=== PATIENT | female | born 1945 | race Caucasian/White ===

== ENCOUNTER → 2016-10-06 | Day surgery (SDC) | payer MEDICARE ==
[~2016-10-06] VITALS: Ht 165.1 cm; Wt 83.4 kg
[~2016-10-06] MED LIST: *morphine SULFATE 8 MG/ML PERIprocedure ONLY ONE; CALC200S NASAL; DEXAMETHASONE SOD PHOS 4 MG/ML VIAL ONE; DO NOT ADM ANY ANTICOAGULANT DRUGS XX PRN; ENOX40P SQ; FAMOTIDINE 20 MG/2 ML VIAL ONE; FURO20TA PO; INSULIN HUMAN REGULAR 1,000 UNITS/10 ML VIAL SQ PRN; KETOROLAC TROMETHAMINE 30 MG/ML (IVP) VIAL IVP ONE; LACTATED RINGER'S 1000 ML IV SCH; LISI-515 PO; LORA10TA PO; METOPROLOL TARTRATE 25 MG TAB PO PRN; MIDAZOLAM HCL 2 MG/2 ML VIAL ONE; MORPHINE SULFATE 4 MG/ML INJ IV PUSH PRN; ONDANSETRON HCL 4 MG/2 ML VIAL ONE; OXYC1TAB63 PO; PANT40TA3 PO; PROPOFOL 200 MG/20 ML AMP IV ONE; SODIUM CHLOR 0.9% 250 ML INJ 250 ML ONE; SODIUM CHLORID 0.9% 500 ML IV SCH; SODIUM CHLORIDE 0.9% FLUSH 10 ML FLUSH IV FLUSH PRN; SODIUM CHLORIDE 0.9% FLUSH 10 ML FLUSH IV FLUSH SCH; TRAM50TA PO; VANCOMYCIN HCL 1000 MG VIAL ONE; ceFAZolin 2 GM PREMIX 50 ML ONE
[2016-10-06 08:34] VITALS: BP 143/71; PULSE 62; RESP 16; TEMP 97.8; O2SAT 96
[2016-10-06] MEDS: GENTAMICIN SULFATE 80 MG/2 ML VIAL ONE ×2 (11:17→11:21)
--- NOTE | 2016-10-06 12:04 | RADRPT ---
EXAM DATE/TIME: 10/06/2016 11:39 [facility] COMPARISON: HIP LEFT (AP&LAT 2/3VWS) WO AP PELVIS, April 22, 2016, 12:28. INDICATIONS : Hardware removal, left hip. MEDICAL HISTORY : None. SURGICAL HISTORY : ORIF left hip ENCOUNTER: Initial ACUITY: 1 day PAIN SCORE: Non-responsive. LOCATION: Left hip FINDINGS: Hardware has been removed. Alignment remains anatomic. CONCLUSION: Status post hardware removal. Alton Baires MD FACR on October 06, 2016 at 12:01 Board Certified Radiologist. This report was verified electronically.
--- NOTE | 2016-10-06 12:14 | PD.OP ---
cc: Russ Ann Jr., MD Operative Report Date of Surgery: Oct 06, 2016 Preoperative Diagnosis: Left hip painful hardware Postoperative Diagnosis: Same Procedure: Left hip removal of hardware Anesthesia: Gen. Surgeon: Russ Ann Assistant Professor Of History(s): Staff Resident Surgeon: None Operation and Findings: Patient was seen and evaluated preoperatively. The patient is status post percutaneous screw fixation for a nondisplaced left femoral neck fracture. After fracture has healed, she continued to complain of persistent left trochanter hip pain from the screws. The pain persisted despite conservative care. She now presents for removal of hardware. The risks and benefits of surgery were discussed in depth with the patient to include bleeding, infection , nonunion, malunion, need for hip replacement as well as medical competitions including blood clots, stroke, heart attack, and . Informed consent was obtained. Operative site was marked. Patient was brought to the operating room and placed on fracture table. IV sedation was administered by anesthesiologist. Timeout procedure was performed. Hip and leg were prepped with alcohol followed by Hibiclens and draped in the usual sterile fashion. IV antibiotics were given prior to incision. Procedure began by making an incision through the previous surgical scar. Subcutaneous tissue was dissected bluntly. Under fluoroscopy, guide pins were placed into the head of the screws for localization and easier removal. The screws were removed. Final fluoroscopy revealed complete removal of all 3 screws. Incision was closed with 3-0 Vicryl and nimisha. Sterile dressings were applied. Patient was awakened and transferred to recovery room. POSTP-OP PLAN OF ACTIVITY Antibiotics: none Antiocoagulation: SCD Weight bearing status: NWB Dressing: Change daily starting POD 7 Dispo: expected discharge home from PACU Rsus Ann Jr., MD Oct 06, 2016 12:14
[2016-10-06 13:54] VITALS: BP 184/71; PULSE 67; RESP 16; TEMP 97.9; O2SAT 97
== END | disposition home or self-care (01) ==
LOC: HSDC 07:09
PROVIDERS: ATTEND Orthopaedic Surgery
DX: T84.84XA Pain due to internal orthopedic prosthetic devices, implants and grafts, initial encounter (principal); S72.22XD Displaced subtrochanteric fracture of left femur, subsequent encounter for closed fracture with routine healing; I10 Essential (primary) hypertension
CPT/HCPCS: 01210; 20680; 73502; 76000; 86850; 86900; 86901; J0690; J1100; J1580; J1885; J2250; J2270; J2405; J3010; J3370; J7050; J7120

== ENCOUNTER 2017-05-25 06:15 | Inpatient (IN) | payer MEDICARE ==
[~2017-05-25] VITALS: Ht 165.1 cm; Wt 91.0 kg
[~2017-05-25 06:15] MED LIST changes: -*morphine SULFATE 8 MG/ML PERIprocedure ONLY ONE; -DEXAMETHASONE SOD PHOS 4 MG/ML VIAL ONE; -DO NOT ADM ANY ANTICOAGULANT DRUGS XX PRN; -ENOX40P SQ; -FAMOTIDINE 20 MG/2 ML VIAL ONE; -INSULIN HUMAN REGULAR 1,000 UNITS/10 ML VIAL SQ PRN; -KETOROLAC TROMETHAMINE 30 MG/ML (IVP) VIAL IVP ONE; -LACTATED RINGER'S 1000 ML IV SCH; +LORA-650 PO; -LORA10TA PO; -METOPROLOL TARTRATE 25 MG TAB PO PRN; -MIDAZOLAM HCL 2 MG/2 ML VIAL ONE; -MORPHINE SULFATE 4 MG/ML INJ IV PUSH PRN; -ONDANSETRON HCL 4 MG/2 ML VIAL ONE; -OXYC1TAB63 PO; -PANT40TA3 PO; -PROPOFOL 200 MG/20 ML AMP IV ONE; -SODIUM CHLOR 0.9% 250 ML INJ 250 ML ONE; -SODIUM CHLORID 0.9% 500 ML IV SCH; -SODIUM CHLORIDE 0.9% FLUSH 10 ML FLUSH IV FLUSH PRN; -SODIUM CHLORIDE 0.9% FLUSH 10 ML FLUSH IV FLUSH SCH; -TRAM50TA PO; -VANCOMYCIN HCL 1000 MG VIAL ONE; -ceFAZolin 2 GM PREMIX 50 ML ONE
[2017-05-25] MEDS ORDERED: POVIDONE IODINE 7.5% SCRUB 118 ML BOTTLE TOPICAL SCH (06:45)
[2017-05-25] MEDS ORDERED: VANCOMYCIN 1000 MG/NS 250 ML (for <70 kg) IV SCH ×2 (06:45)
[2017-05-25] MEDS ORDERED: LACTATED RINGER'S 1000 ML IV PRN (06:45)
[2017-05-25] MEDS ORDERED: SODIUM CHLORID 0.9% 500 ML IV PRN (06:45)
[2017-05-25] MEDS ORDERED: CHLORHEXIDINE GLUCONATE 2 % 1 PACK (2 CLOTHS) TOPICAL PRN (06:45)
[2017-05-25] MEDS ORDERED: POVIDONE IODINE 5% (ANTISEPSIS KIT) 4 APPLICATIONS EACH NARE PRN (06:45)
[2017-05-25] MEDS ORDERED: ceFAZolin 2 GM PREMIX 50 ML IV SCH (06:45)
[2017-05-25] MEDS ORDERED: METOPROLOL TARTRATE 25 MG TAB PO PRN (06:45)
[2017-05-25] MEDS ORDERED: EXPAREL PERI-ARTICULAR INJECTION (TOTAL VOL. 60 ML) P-ARTICULR SCH ×2 (11:00)
[2017-05-25] MEDS ORDERED: TRANEXAMIC ACID 1 GM PRIOR TO PROCEDURE IV SCH ×2 (11:00)
[2017-05-25] MEDS ORDERED: PERC5TAB12 PO (11:32)
[2017-05-25] MEDS ORDERED: XARE10TA PO (11:32)
--- NOTE | 2017-05-25 11:34 | HHI.FF ---
Face to Face Verification Diagnosis: (1) Arthritis of left hip Physical Therapy Gait training Hip: Total hip, Protocol: Left Left LE Weight Bearing: WB as tolerated Left LE Range of Motion: Active ROM Additional Instructions anterior hip precautions Nursing Additional Instructions do not change dressing I have seen patient Liane Pagan on 05/25/17. My clinical findings support the need for the requested home health care services because: Ltd mobility - disease progression Limited ability to care for self High risk of falls I certify that my clinical findings support that this patient is homebound because: Post-op weakness Unsteady gait/balance Russ Ann Jr., MD May 25, 2017 11:34
[2017-05-25] MEDS ORDERED: GENTAMICIN SULFATE 80 MG/2 ML VIAL ONE (11:38)
[2017-05-25] MEDS ORDERED: PHENYLEPHRINE HCL 10 MG/ML VIAL IV ONE (12:00)
[2017-05-25] MEDS ORDERED: PROPOFOL 200 MG/20 ML AMP IV ONE (12:00)
[2017-05-25] MEDS ORDERED: ONDANSETRON HCL 4 MG/2 ML VIAL IV PUSH ONE (12:00)
[2017-05-25] MEDS ORDERED: SODIUM CHLORIDE 0.9% 20 ML VIAL IV ONE (12:00)
[2017-05-25] MEDS ORDERED: ceFAZolin INJ 1,000 MG VIAL IV ONE (12:00)
[2017-05-25] MEDS ORDERED: METOPROLOL TARTRATE 5 MG/5 ML VIAL IV PUSH ONE (12:00)
[2017-05-25] MEDS ORDERED: NORMOSOL R INJ 1,000 ML IV ONE (12:00)
[2017-05-25] MEDS ORDERED: LACTATED RINGER'S 1000 ML INJ 1,000 ML IV ONE (12:00)
[2017-05-25] MEDS ORDERED: PHENYLEPH/NS 1000 MCG/10 ML SYR IV ONE (12:00)
[2017-05-25] MEDS ORDERED: ROCURONIUM INJ 50 MG/5 ML SYRINGE IV PUSH ONE (12:00)
[2017-05-25] MEDS ORDERED: ePHEDrine/NS 25 MG/5 ML SYR IV ONE (12:00)
[2017-05-25] MEDS ORDERED: DEXAMETHASONE SOD PHOS 4 MG/ML VIAL IV ONE (12:00)
[2017-05-25] MEDS ORDERED: LIDOCAINE HCL 1% PF 5 ML SYRINGE OTHER ONE (12:00)
[2017-05-25] MEDS ORDERED: MIDAZOLAM HCL 2 MG/2 ML VIAL IV ONE (12:00)
[2017-05-25] MEDS ORDERED: TRANEXAMIC ACID 1 GM POST-OP IV SCH ×2 (14:00)
[2017-05-25 15:15] LABS: HEMATOCRIT 34.3 % (35.0-46.0); REVIEW FLAG FINAL
[2017-05-25 16:20] VITALS: BP 123/60; PULSE 88; RESP 17; TEMP 96.7; O2SAT 95
[2017-05-25] MEDS ORDERED: ceFAZolin INJ 1,000 MG VIAL ONE (16:41)
--- NOTE | 2017-05-25 16:41 | RADRPT ---
EXAM DATE/TIME: 05/25/2017 15:19 [facility] COMPARISON: HIP LEFT (AP&LAT 2/3VWS) W AP PELVIS, April 21, 2016, 16:49. INDICATIONS : Left total hip replacement. MEDICAL HISTORY : None. SURGICAL HISTORY : Prior left hip pinning. ENCOUNTER: Initial ACUITY: 1 day PAIN SCORE: Non-responsive. LOCATION: Left hip. FINDINGS: The patient is status post a total hip arthroplasty with a bipolar prosthesis. Prosthesis is well-sea rey. Alignment is anatomic. A fracture is not appreciated. CONCLUSION: Anatomic alignment. Alton Baires MD FACR Alton Baires MD FACR on May 25, 2017 at 16:38 Board Certified Radiologist. This report was verified electronically.
--- NOTE | 2017-05-25 17:01 | PD.OP ---
cc: Russ Ann Jr., MD Operative Report Date of Surgery: May 25, 2017 Preoperative Diagnosis: Left hip posttraumatic arthritis Postoperative Diagnosis: Same Procedure: Left total hip arthroplasty through anterior approach Anesthesia: Gen. Surgeon: Russ Ann Processing Mgr(s): JUAN DAVID Worrell The surgical procedure was assisted by my Advanced Registered Nurse Practitioner. My POWERTRAIN CONTROL SYSTEMS ENGINEER presence was necessary throughout this case for the manipulation and positioning of the surgical extremity. My POWERTRAIN CONTROL SYSTEMS ENGINEER was assisting me throughout the duration of this procedure. The skill set of an Advance Registered Nurse Practitioner was medically necessary to complete this procedure. During the surgical case, the assembler surgical garment was working at the back table and the Advance Registered Nurse Practitioner was directly assisting me. Resident Surgeon: None Operation and Findings: DETAILS OF PROCEDURE: This patient has a long history of LEFT hip pain. Patient was found to have severe post traumatic osteoarthritis. She is s/p left hip perc screw fixation with subsequent removal of hardware. The patient had radiographic evidence of joint space narrowing with utyc-hp-srcm arthritis and osteophytes around the acetabulum as well as the femoral head. There was also some cystic changes. The patient failed conservative treatment with pain medications, anti-inflammatories , physical therapy, assistive devices including a cane, as well as therapeutic injection of the hip. The patient wished to proceed with surgery and informed consent was obtained. Operative site was marked. I discussed both posterior approach and anterior approach. The patient decided on anterior approach. Patient was brought to OR and placed on OR table. IV sedation and general anesthesia was administered by anesthesiologist. Patient positioned on a Cecilia table and was given IV antibiotics. Time-out procedure was performed. The LEFT hip and thigh were prepped with alcohol followed by Hibiclens. The thigh was draped in the usual sterile fashion. Clean Air Suite was used for this procedure. The procedure began with a 5-inch incision over the anterolateral thigh. Subcutaneous tissue was dissected with Bovie. The fascia over the tensa fasciae latae was incised. Care was taken to avoid injury to the lateral femoral cutaneous nerve. The tensor muscle was retracted laterally. Sartorius was retracted medially. Retractors were now placed. The reflected head of the rectus is now elevated. A capsulotomy was performed over the anterior head capsule. Sutures were placed to help retract the capsule. At this point the femoral head and neck were identified. There was significant shortening of the femoral head. With soft tissue protected, oscillating saw was used to make a cut through the femoral neck, the femoral head was now removed. At this point attention was turned to preparation of the acetabulum. The labrum was excised. The acetabulum was sequentially reamed up to size. A [place] tritanium 54mm cup was now placed. Fluoroscopy was used to aid in identification of appropriate version. Cup was fully impacted and found to have excellent fit. Two (2) screws were place into the acetabulum to provide further fixation. The liner was now impacted into the cup. At this point the hip was externally rotated. A hook was placed around the proximal femur. The capsule was released off the lateral and medial femur. The hip was now extended and adducted. Retractors were placed around the proximal femur to allow for exposure. A box osteotome was used to remove the lateral cortex of the femoral neck. A broach and curet were used to help lateralize the prosthesis. There was significant sclerotic bone around the proximal femur from her previous fracture making passage of canal finder and broaches difficult and pushing them into varus. A ball-tipped guidewire was passed and a 12 mm reamer was used to further open the canal distally. Canal finder was used to create a path down the canal. Next, the canal was sequentially broached up to size 8. This was found to be an excellent fit. Calcar planer was placed. A standard head was placed, hip was reduced. Trial head was now was placed and the hip was found to have excellent stability with good range of motion. The leg lengths were measured under fluoroscopy and found to be equal compared to preoperatively. Trial broach was removed. The stem was opened. Stem was fully impacted into the proximal femur in appropriate version. The femoral head was placed. The hip was again reduced. Fluoroscopy confirmed excellent alignment of prosthesis. The wound was thoroughly irrigated and capsule was closed with #1 Vicryl. The fascia over the tensor fasciae muscle was closed with #1 Vicryl, subcutaneous tissue was closed with 3-0 Vicryl and the skin was closed with 4-0 monocryl. The capsule layers were injected with a mixture of saline and bupivicaine. A silver dressing was applied. The patient was transferred to Recovery Room in stable condition. IMPLANTS USED Styker Accollade II stem # 8, 132 56 cluster tritanium shell, 36 liner screws 6.5 mm 25mm screws x 2 36 +0mm ceramic head POSTP-OP PLAN OF ACTIVITY Antibiotics: Ancef Antiocoagulation: Lovenox while hospitalized (xeralto for 30 days. rx in chart) Weight bearing status: WBAT PT/OT: encourage at least 3 times a day Dressing: Do not change Dispo: expected discharge 2 days with C. F2F on chart Russ Ann Jr., MD May 25, 2017 17:01
[2017-05-25] MEDS ORDERED: FUROSEMIDE 20 MG TAB PO PRN (17:15)
[2017-05-25] MEDS ORDERED: SENNOSIDES 8.6 MG TAB PO PRN (17:15)
[2017-05-25] MEDS ORDERED: oxyCODONE/ACETAMINOPHEN 5 MG/325 MG TAB PO PRN (17:15)
[2017-05-25] MEDS ORDERED: ONDANSETRON HCL 4 MG/2 ML VIAL IVP PRN (17:15)
[2017-05-25] MEDS ORDERED: PROMETHAZINE HCL 25 MG SUPP RECTAL PRN (17:15)
[2017-05-25] MEDS ORDERED: Post-op Orders (for Pharmacy) MISC XX ONE (17:15)
[2017-05-25] MEDS ORDERED: MAGNESIUM HYDROXIDE SUSP 30 ML CUP PO PRN (17:15)
[2017-05-25] MEDS ORDERED: ZOLPIDEM TARTRATE 5 MG TAB PO PRN (17:15)
[2017-05-25] MEDS ORDERED: LACTULOSE SYRUP 20 GM/30 ML CUP PO PRN (17:15)
[2017-05-25] MEDS ORDERED: MORPHINE SULFATE 8 MG/ML INJ IV PUSH PRN (17:15)
[2017-05-25] MEDS ORDERED: BISACODYL 10 MG SUPP RECTAL PRN (17:15)
[2017-05-25] MEDS ORDERED: PROMETHAZINE HCL 25 MG TAB PO PRN (17:15)
[2017-05-25] MEDS ORDERED: SODIUM CHLORIDE 0.9% FLUSH 10 ML FLUSH IV FLUSH PRN (17:15)
[2017-05-25] MEDS ORDERED: *morphine SULFATE 8 MG/ML PERIprocedure ONLY ONE ×3 (17:17→17:56)
[2017-05-25] MEDS ORDERED: DO NOT ADM ANY ANTICOAGULANT DRUGS PRN (17:45)
--- NOTE | 2017-05-25 17:52 | RADRPT ---
EXAM DATE/TIME: 05/25/2017 17:21 [facility] COMPARISON: HIP LEFT (AP&LAT 2/3VWS) W AP PELVIS, May 25, 2017, 15:19. INDICATIONS : Post operative left hip. MEDICAL HISTORY : None. SURGICAL HISTORY : Prior left hip pinning. ENCOUNTER: Subsequent ACUITY: 1 day PAIN SCORE: Non-responsive. LOCATION: Left hip. FINDINGS: The patient is post left hip arthroplasty. Orthopedic hardware is in excellent position. The alignmen t is good. No acute fracture is seen. CONCLUSION: Uncomplicated left hip arthroplasty. Kody Baires MD on May 25, 2017 at 17:50 Board Certified Radiologist. This report was verified electronically.
[2017-05-25] MEDS ORDERED: TRANEXAMIC ACID INJ 1,000 MG in SODIUM CHLORIDE 0.9% INJ 100 ML IV SCH (18:00)
[2017-05-25] MEDS ORDERED: PILL SPLITTER OTHER PRN (18:00)
[2017-05-25 20:00] VITALS: BP 110/60; PULSE 92; RESP 16; TEMP 94.3; O2SAT 99
[2017-05-25] MEDS: DOCUSATE SODIUM 50 MG/SENNA 8.6 MG TAB PO SCH (20:31)
[2017-05-25] MEDS: KETOROLAC TROMETHAMINE 30 MG/ML (IVP) VIAL IVP SCH ×2 (20:31→23:41)
[2017-05-25] MEDS: SODIUM CHLORIDE 0.9% FLUSH 10 ML FLUSH IV FLUSH SCH (20:31)
[2017-05-26] VITALS (8 sets, daily range): BP systolic 92–135; BP diastolic 39–58; PULSE 76–93; RESP 16–20; TEMP 94.1–99.7; O2SAT 94–100
[2017-05-26] MEDS: KETOROLAC TROMETHAMINE 30 MG/ML (IVP) VIAL IVP SCH ×3 (05:52→16:55)
[2017-05-26] MEDS: ENOXAPARIN SODIUM 30 MG/0.3 ML SYRINGE SQ SCH ×2 (05:56→16:56)
[2017-05-26] MEDS: DOCUSATE SODIUM 50 MG/SENNA 8.6 MG TAB PO SCH ×2 (08:13→20:49)
[2017-05-26] MEDS: SODIUM CHLORIDE 0.9% FLUSH 10 ML FLUSH IV FLUSH SCH ×2 (08:14→20:49)
[2017-05-26] MEDS: LORATADINE 10 MG TAB PO SCH (08:14)
[2017-05-26] MEDS ORDERED: LISINOPRIL 20 MG TAB PO SCH (09:00)
--- NOTE | 2017-05-26 10:33 | PD.CONS ---
HPI Service [facility] Hospitalists Consult Requested By Dr. Ann Reason for Consult Medical management status post left total hip arthroplasty anterior approach Primary Care Physician Alex Saeed MD Diagnoses: History of Present Illness This is a 72-year-old female patient with past medical history which includes hypertension, GERD, osteoporosis. Patient underwent a left total hip arthroplasty on 05/25/[address] Ann. We have been consulted for assistance with postoperative medical management. Postoperative pain tolerable. Patient reports N/V last night but none today. Patient also reports feeling dizzy and lightheaded earlier today when trying to stand. patient denies fevers chills cough congestion shortness of breath or chest pain. Review of Systems Constitutional: DENIES: Fatigue, Fever, Chills Eyes: DENIES: Blurred vision, Diplopia, Double Vision Respiratory: DENIES: Cough, Sputum production, Shortness of breath Cardiovascular: DENIES: Chest pain, Palpitations, Dyspnea on Exertion Gastrointestinal: DENIES: Abdominal pain, Constipation, Diarrhea, Nausea, Vomiting Musculoskeletal: COMPLAINS OF: Joint pain, Stiffness Neurologic: COMPLAINS OF: Abnormal gait, DENIES: Headache, Localized weakness, Seizures Psychiatric: DENIES: Anxiety, Confusion, Depression Past Family Social History Past Medical History Hypertension, GERD and osteoporosis Past Surgical History Bladder prolapse surgery [place] [address] Diana Reported Medications Xarelto (Rivaroxaban) 10 Mg Tab 10 Mg PO DAILY Percocet (Oxycodone-Acetaminophen) 5-325 mg Tab 1 Tab PO Q4H PRN Allergy Relief (Loratadine) 10 Mg Tab 10 Mg PO DAILY Calcitonin ([place]) Nasal [place] (Calcitonin [place]) 200 Unit/Act [place] 1 [place] NASAL DAILY Alternate nostrils daily. Furosemide 20 Mg Tab 10 Mg PO DAILY PRN Lisinopril 20 Mg Tab 20 Mg PO DAILY Allergies: Coded Allergies: NSAIDS (Non-Steroidal Anti-Inflamma (Verified Allergy, Severe, 05/25/17) gerd risedronate sodium (Verified Allergy, Intermediate, Joint Pain, 05/25/17) alendronate sodium (Verified Allergy, Unknown, 05/25/17) diclofenac (Verified Allergy, Unknown, 05/25/17) Active Ordered Medications Current Medications Medications (Trade) Dose Ordered Sig/Deshawn Route Start Time Stop Time Status Last Admin Lactated Ringer's 1,000 ml @ 30 mls/hr Q24H PRN IV 05/25/17 06:45 05/28/17 06:44 05/25/17 07:30 Sodium Chloride 500 ml @ 30 mls/hr [id number] PRN IV 05/25/17 06:45 05/28/17 06:44 (Lopressor) 25 mg LIVE AMMUNITION INSPECTOR PRN PO 05/25/17 06:45 05/28/17 06:44 (Betadine 5% Antisepsis Kit) 1 applic LIVE AMMUNITION INSPECTOR PRN EACH NARE 05/25/17 06:45 05/28/17 06:44 05/25/17 07:30 (Chlorhexidine 2% Cloth) 3 pack LIVE AMMUNITION INSPECTOR PRN TOPICAL 05/25/17 06:45 05/28/17 06:44 05/25/17 07:10 (Betadine 7.5% Scrub) 1 applic ONCE TOPICAL 05/25/17 06:45 05/28/17 06:44 05/25/17 07:43 Cefazolin Sodium/ Dextrose 50 ml @ 100 mls/hr LIVE AMMUNITION INSPECTOR IV 05/25/17 06:45 05/28/17 06:44 05/25/17 12:42 Vancomycin HCl 1000 mg/Sodium Chloride 250 ml @ 250 mls/hr LIVE AMMUNITION INSPECTOR IV 05/25/17 06:45 05/28/17 06:44 05/25/17 12:28 Tranexamic Acid 1000 mg/Sodium Chloride 110 ml @ 220 mls/hr ONCE IV 05/25/17 11:00 05/26/17 17:00 05/25/17 12:32 (NS Flush) 2 ml UNSCH PRN IV FLUSH 05/25/17 17:15 (NS Flush) 2 ml BID IV FLUSH 05/25/17 21:00 05/25/17 20:31 Cefazolin Sodium 1000 mg/Sodium Chloride 100 ml @ 200 mls/hr Q6H IV 05/25/17 23:00 05/26/17 11:29 05/26/17 10:01 (Lovenox Inj) 30 mg Q12H SQ 05/26/17 06:00 05/26/17 05:56 (Morphine Inj) 5 mg Q3H PRN IV PUSH 05/25/17 17:15 (Percocet 5-325 Mg) 1 tab Q4H PRN PO 05/25/17 17:15 (Percocet 5-325 Mg) 2 tab Q4H PRN PO 05/25/17 17:15 (Toradol Inj) 15 mg Q6HR IVP 05/25/17 20:00 05/27/17 12:01 05/26/17 05:52 (Phenergan) 25 mg Q4H PRN PO 05/25/17 17:15 (Phenergan Supp) 25 mg Q4H PRN RECTAL 05/25/17 17:15 (Theragran M Tab) 1 tab BID PO 05/26/17 21:00 07/25/17 20:59 (Zofran Inj) 4 mg Q6H PRN IVP 05/25/17 17:15 (Ambien) 5 mg HS PRN PO 05/25/17 17:15 (Maile-Colace) 1 tab BID PO 05/25/17 21:00 05/26/17 08:13 (Milk Of Magnesia Liq) 30 ml Q12H PRN PO 05/25/17 17:15 (Senokot) 17.2 mg Q12H PRN PO 05/25/17 17:15 (Dulcolax Supp) 10 mg DAILY PRN RECTAL 05/25/17 17:15 (Lactulose Liq) 30 ml DAILY PRN PO 05/25/17 17:15 (Lasix) 10 mg DAILY PRN PO 05/25/17 17:15 (Prinivil) 20 mg DAILY PO 05/26/17 09:00 (Claritin) 10 mg DAILY PO 05/26/17 09:00 Miscellaneous Information ALL NURSING DEPARTME... UNSCH PRN .XX 05/25/17 17:45 05/26/17 17:44 (Pill Splitter) 1 ea UNSCH PRN OTHER 05/25/17 18:00 Family History Reviewed and noncontributory Social History Patient is lives at home with her EtOH use occasionally not on a daily basis Tobacco use quit smoking 30 years ago Physical Exam Vital Signs Vital Signs Date Time Temp Pulse Resp B/P (MAP) Pulse Ox O2 Delivery O2 Flow Rate FiO2 05/26/17 08:00 95.9 76 18 92/46 (61) 99 05/26/17 04:00 98.2 81 16 108/49 (68) 98 05/26/17 01:19 96.9 05/26/17 00:00 94.1 87 17 104/58 (73) 99 05/25/17 20:00 94.3 92 16 110/60 (77) 99 05/25/17 18:00 84 16 112/56 (74) 97 Nasal Cannula 2 05/25/17 17:45 86 16 137/59 (85) 97 Nasal Cannula 2 05/25/17 17:30 84 16 124/56 (78) 96 Nasal Cannula 2 05/25/17 17:15 95 16 106/51 (69) 97 Nasal Cannula 2 05/25/17 17:08 97.7 100 16 118/56 (76) 96 Nasal Cannula 2 05/25/17 16:20 96.7 88 17 123/60 (81) 95 Physical Exam GENERAL: This is a well-nourished, well-developed patient, in no apparent distress. SKIN: Postoperative dressing dry and intact. Pale/dry oral mucosa EYES: Extraocular motions intact. No scleral icterus. No injection or drainage. CARDIOVASCULAR: Regular rate and rhythm RESPIRATORY: Clear to auscultation. Breath sounds equal bilaterally GASTROINTESTINAL: Abdomen soft, non-tender, nondistended. Normoactive bowel sounds 4 quadrants MUSCULOSKELETAL:No calf tenderness. Negative Homans sign bilaterally. NEUROLOGICAL: Awake and alert. No focal deficits appreciated. Motor and sensory grossly within normal limits. Five out of 5 muscle strength in all muscle groups, with the exception of post-operative LLE. Normal speech. Laboratory Laboratory Tests Test 05/25/17 14:26 Hemoglobin 11.2 Hematocrit 34.3 Result Diagram: 05/25/17 1426 Imaging Last Impressions Hip and Pelvis X-Ray 05/25/17 0000 Signed Impressions: Service Date/Time: Thursday, May 25, 2017 17:21 - CONCLUSION: Uncomplicated left hip arthroplasty. Kody Baires MD Assessment and Plan Problem List: (1) Arthritis of left hip ICD Codes: M16.12 - Unilateral primary osteoarthritis, left hip Plan: Left hip posttraumatic arthritis Status post left total hip arthroplasty through anterior approach by Dr. Ann 05/25/2017 Postoperative pain management with Percocet by mouth and morphine IV Hypertension currently hypotensive Continue home lisinopril withhold parameters 500 ml NS bolus stat CBC GERD Continue home Protonix DVT prophylaxis with Lovenox 30 mg every 12 hours subcutaneous (2) HTN (hypertension) ICD Codes: I10 - Essential (primary) hypertension Status: Chronic (3) GERD (gastroesophageal reflux disease) ICD Codes: K21.9 - Gastro-esophageal reflux disease without esophagitis Status: Chronic Assessment and Plan Patient examined. Assessment and plan formulated with Naida Elder PA-C. I agree with the above. s/p left baldo. post op hypotension. probably mild blood loss anemia and related to pain meds/anesthesia...plus poor po intake last night from n/v. hold bp meds. cont ivf. 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 bp slowly rising. reassess later. Naida Elder May 26, 2017 10:33 Zackary Alanis MD May 26, 2017 13:12
[2017-05-26] MEDS ORDERED: SODIUM CHLORID 0.9% 500 ML INJ 500 ML IV ONE (11:15)
--- NOTE | 2017-05-26 12:52 | PD.ORT.PN ---
Subjective Subjective Remarks pain controlled. feels weak and dizzy upon sitting up. hypotensive. Objective Vitals Vital Signs Date Time Temp Pulse Resp B/P (MAP) Pulse Ox O2 Delivery O2 Flow Rate FiO2 05/26/17 12:00 96.7 82 18 98/39 (58) 100 05/26/17 08:00 95.9 76 18 92/46 (61) 99 05/26/17 04:00 98.2 81 16 108/49 (68) 98 05/26/17 01:19 96.9 05/26/17 00:00 94.1 87 17 104/58 (73) 99 05/25/17 20:00 94.3 92 16 110/60 (77) 99 05/25/17 18:00 84 16 112/56 (74) 97 Nasal Cannula 2 05/25/17 17:45 86 16 137/59 (85) 97 Nasal Cannula 2 05/25/17 17:30 84 16 124/56 (78) 96 Nasal Cannula 2 05/25/17 17:15 95 16 106/51 (69) 97 Nasal Cannula 2 05/25/17 17:08 97.7 100 16 118/56 (76) 96 Nasal Cannula 2 05/25/17 16:20 96.7 88 17 123/60 (81) 95 I/O 05/25/17 05/25/17 05/25/17 05/26/17 05/26/17 05/26/17 07:00 15:00 23:00 07:00 15:00 23:00 Intake Total 2820 ml 100 ml 598 ml Output Total 1700 ml Balance 1120 ml 100 ml 598 ml Intake Oral 20 ml IV Total 100 ml 598 ml Other 2800 ml Output Urine Total 600 ml Estimated Blood Loss 1100 ml Result Diagram: 05/25/17 1426 Objective Remarks Alert awake and oriented -3. No acute distress. Pulmonary: Normal respiratory effort. Left lower extremity: Neurovascularly intact, +EHL/FHL, dressing clean, dry and intact. + PT/DP pulses. Supple compartments. Negative Homans sign. Right lower extremity: neurovascularly intact Assessment & Plan Assessment and Plan POD #1left total hip replacement Feeling weak and hypotensive. Otherwise no other issues. Pain controlled Antibiotics: Ancef DVT prophylaxis, Lovenox. xeralto (at dc, rx on chart) Weightbearing status: WBAT Dressing change:none Dispo: home with [facility] tomorrow or Russ Stark Jr., MD May 26, 2017 12:52
[2017-05-26 13:04] LABS: HEMATOCRIT 26.7 % (35.0-46.0); MEAN CELL VOLUME 96.6 FL (80.0-100.0); MEAN CORPUSCULAR HEMOGLOBIN 31.8 PG (27.0-34.0); MEAN CORPUSCULAR HGB CONC 32.9 % (32.0-36.0); PLATELET COUNT 170 TH/MM3 (150-450); RED BLOOD COUNT 2.77 MIL/MM3 (4.00-5.30); RED CELL DISTRIBUTION WIDTH 15.1 % (11.6-17.2); REVIEW FLAG FINAL; WHITE BLOOD COUNT 10.4 TH/MM3 (4.0-11.0)
[2017-05-26] MEDS: MULTIVITAMINS/MINERALS THERAPEUTIC TAB PO SCH (20:49)
[2017-05-27] VITALS (11 sets, daily range): BP systolic 102–133; BP diastolic 45–62; PULSE 81–105; RESP 16–20; TEMP 96.8–101.3; O2SAT 94–98
[2017-05-27] MEDS: oxyCODONE/ACETAMINOPHEN 5 MG/325 MG TAB PO PRN ×4 (00:03→22:22)
[2017-05-27] MEDS: KETOROLAC TROMETHAMINE 30 MG/ML (IVP) VIAL IVP SCH ×3 (00:04→13:46)
[2017-05-27] MEDS: ENOXAPARIN SODIUM 30 MG/0.3 ML SYRINGE SQ SCH ×2 (05:08→16:47)
[2017-05-27] MEDS: DOCUSATE SODIUM 50 MG/SENNA 8.6 MG TAB PO SCH ×2 (08:39→22:22)
[2017-05-27] MEDS: MULTIVITAMINS/MINERALS THERAPEUTIC TAB PO SCH ×2 (08:39→22:22)
[2017-05-27] MEDS: SODIUM CHLORIDE 0.9% FLUSH 10 ML FLUSH IV FLUSH SCH ×2 (08:40→22:22)
[2017-05-27] MEDS: LORATADINE 10 MG TAB PO SCH (08:40)
--- NOTE | 2017-05-27 08:54 | PD.ORT.PN ---
Subjective Subjective Remarks pain controlled. feels better Objective Vitals Vital Signs Date Time Temp Pulse Resp B/P (MAP) Pulse Ox O2 Delivery O2 Flow Rate FiO2 05/27/17 04:00 99.1 99 20 119/55 (76) 97 05/27/17 00:04 100.2 05/27/17 00:00 101.3 105 20 131/62 (85) 97 05/26/17 20:15 94 Nasal Cannula 1.00 05/26/17 20:00 99.7 93 20 115/57 (76) 99 05/26/17 16:00 97.8 85 18 135/52 (79) 94 05/26/17 12:00 96.7 82 18 98/39 (58) 100 I/O 05/26/17 05/26/17 05/26/17 05/27/17 05/27/17 05/27/17 07:00 15:00 23:00 07:00 15:00 23:00 Intake Total 100 ml 1318 ml 480 ml 1226 ml Output Total 1000 ml 1700 ml 400 ml 600 ml Balance 100 ml 318 ml -1220 ml 826 ml -600 ml Intake Oral 720 ml 480 ml 280 ml IV Total 100 ml 598 ml 946 ml Output Urine Total 1000 ml 1700 ml 400 ml 600 ml # Bowel Movements 0 0 Result Diagram: 05/26/17 1236 Objective Remarks Alert awake and oriented -3. No acute distress. Pulmonary: Normal respiratory effort. Left lower extremity: Neurovascularly intact, +EHL/FHL, dressing clean, dry and intact. + PT/DP pulses. Supple compartments. Negative Homans sign. Right lower extremity: neurovascularly intact Assessment & Plan Assessment and Plan POD #2- left total hip replacement Feeling better. She is looking forward to doing PT today. Pain controlled DVT prophylaxis, Lovenox. xeralto (at dc, rx on chart) Weightbearing status: WBAT Dressing change:none Dispo: home with [facility] Russ Stark Jr., MD May 27, 2017 08:54
[2017-05-27 09:49] LABS: BASOPHIL % 0.4 % (0.0-2.0); EOSINOPHIL # 0.1 TH/MM3 (0-0.4); HEMO FLAGS DIFF FINAL; LYMPH % 11.1 % (9.0-44.0); MEAN CELL VOLUME 94.2 FL (80.0-100.0); MEAN CORPUSCULAR HEMOGLOBIN 31.3 PG (27.0-34.0); MEAN CORPUSCULAR HGB CONC 33.2 % (32.0-36.0); MONO % 10.5 % (0.0-8.0); PLATELET COUNT 161 TH/MM3 (150-450); RED BLOOD COUNT 2.34 MIL/MM3 (4.00-5.30); RED CELL DISTRIBUTION WIDTH 14.6 % (11.6-17.2); WHITE BLOOD COUNT 9.1 TH/MM3 (4.0-11.0)
[2017-05-27 10:13] LABS: BICARBONATE 22.8 MEQ/L (21.0-32.0); POTASSIUM 3.8 MEQ/L (3.5-5.1)
--- NOTE | 2017-05-27 11:22 | HHI.PR ---
Subjective Remarks Pt had fever last night, Tmax 101.3 She reported some pain when up to the chair but otherwise pain is controlled She denies any chest pain, SOB, palpitations, dizziness or weakness No noted blood or melena from the rectum, no nausea/vomiting/hematemesis/coffee- ground emesis Her BP decreased down to systolic BP in the high 70's when she was placed in the chair this morning. Objective Vitals Vital Signs Date Time Temp Pulse Resp B/P (MAP) Pulse Ox O2 Delivery O2 Flow Rate FiO2 05/27/17 08:00 99.5 93 17 115/55 (75) 97 05/27/17 04:00 99.1 99 20 119/55 (76) 97 05/27/17 00:04 100.2 05/27/17 00:00 101.3 105 20 131/62 (85) 97 05/26/17 20:15 94 Nasal Cannula 1.00 05/26/17 20:00 99.7 93 20 115/57 (76) 99 05/26/17 16:00 97.8 85 18 135/52 (79) 94 05/26/17 12:00 96.7 82 18 98/39 (58) 100 05/27/17 05/27/17 05/28/17 15:00 23:00 07:00 Output Total 600 ml Balance -600 ml Output Urine Total 600 ml Result Diagram: 05/27/17 0855 05/27/17 0855 Other Results Laboratory Tests Test 05/25/17 14:26 05/26/17 12:36 05/27/17 08:55 Hemoglobin 11.2 GM/DL 8.8 GM/DL 7.3 GM/DL Hematocrit 34.3 % 26.7 % 22.0 % White Blood Count 10.4 TH/MM3 9.1 TH/MM3 Red Blood Count 2.77 MIL/MM3 2.34 MIL/MM3 Mean Corpuscular Volume 96.6 FL 94.2 FL Mean Corpuscular Hemoglobin 31.8 PG 31.3 PG Mean Corpuscular Hemoglobin Concent 32.9 % 33.2 % Red Cell Distribution Width 15.1 % 14.6 % Platelet Count 170 TH/MM3 161 TH/MM3 Mean Platelet Volume 9.3 FL 9.4 FL Neutrophils (%) (Auto) 77.0 % Lymphocytes (%) (Auto) 11.1 % Monocytes (%) (Auto) 10.5 % Eosinophils (%) (Auto) 1.0 % Basophils (%) (Auto) 0.4 % Neutrophils # (Auto) 7.0 TH/MM3 Lymphocytes # (Auto) 1.0 TH/MM3 Monocytes # (Auto) 1.0 TH/MM3 Eosinophils # (Auto) 0.1 TH/MM3 Basophils # (Auto) 0.0 TH/MM3 CBC Comment DIFF FINAL Differential Comment Blood Urea Nitrogen 12 MG/DL Creatinine 0.75 MG/DL Random Glucose 124 MG/DL Calcium Level 7.8 MG/DL Sodium Level 140 MEQ/L Potassium Level 3.8 MEQ/L Chloride Level 110 MEQ/L Carbon Dioxide Level 22.8 MEQ/L Anion Gap 7 MEQ/L Estimat Glomerular Filtration Rate 76 ML/MIN Imaging Last Impressions Hip and Pelvis X-Ray 05/25/17 0000 Signed Impressions: Service Date/Time: Thursday, May 25, 2017 17:21 - CONCLUSION: Uncomplicated left hip arthroplasty. Kody Baires MD Objective Remarks General: NAD, AAOx3 Chest: CTA Cardiac: Regular Abd: +BS, soft ND/NT Ext: No edema A/P Problem List: (1) Arthritis of left hip ICD Codes: M16.12 - Unilateral primary osteoarthritis, left hip Plan: Pt is a 72 y/o female with hypertension, GERD, osteoarthritis and osteoporosis. Left hip posttraumatic arthritis - Pt s/p post left total hip arthroplasty through anterior approach by Dr. Ann 05/25/2017 - Postoperative pain management with Percocet by mouth and morphine IV - Constipation precautions - PT daily - Pt currently plans to return home with HHC/PT upon discharge - Anemia, post-op - Pt with continued decrease in her H/H to 7.3/22 - No active bleeding With symptomatic blood loss anemia. 2 units were ordered yesterday but she only got one sof far plan for d/c home tomorrow.- Hypertension improved. related to meds/anemia. prbc and hold bp meds. (2) HTN (hypertension) ICD Codes: I10 - Essential (primary) hypertension Status: Chronic (3) GERD (gastroesophageal reflux disease) ICD Codes: K21.9 - Gastro-esophageal reflux disease without esophagitis Status: Chronic Sofia To May 27, 2017 11:22 Zackary Alanis MD May 27, 2017 12:42
[2017-05-28] VITALS (8 sets, daily range): BP systolic 116–153; BP diastolic 53–64; PULSE 81–94; RESP 17–18; TEMP 97–99.1; O2SAT 96–98
[2017-05-28] MEDS: oxyCODONE/ACETAMINOPHEN 5 MG/325 MG TAB PO PRN ×4 (04:32→18:45)
[2017-05-28] MEDS: ENOXAPARIN SODIUM 30 MG/0.3 ML SYRINGE SQ SCH ×2 (04:32→17:18)
[2017-05-28 08:47] LABS: AUTOMATED NEUTROPHIL # 7.4 TH/MM3 (1.8-7.7); BASOPHIL % 0.3 % (0.0-2.0); EOSINOPHIL # 0.2 TH/MM3 (0-0.4); EOSINOPHIL % 2.3 % (0.0-4.0); HEMATOCRIT 24.2 % (35.0-46.0); HEMO FLAGS DIFF FINAL; LYMPH % 13.9 % (9.0-44.0); LYMPHOCYTE # 1.4 TH/MM3 (1.0-4.8); MEAN CELL VOLUME 92.8 FL (80.0-100.0); MEAN CORPUSCULAR HEMOGLOBIN 31.1 PG (27.0-34.0); MEAN CORPUSCULAR HGB CONC 33.6 % (32.0-36.0); MONO % 11.4 % (0.0-8.0); NEUT % 72.1 % (16.0-70.0); PLATELET COUNT 178 TH/MM3 (150-450); RED CELL DISTRIBUTION WIDTH 15.5 % (11.6-17.2); WHITE BLOOD COUNT 10.3 TH/MM3 (4.0-11.0)
[2017-05-28 09:08] LABS: BICARBONATE 26.6 MEQ/L (21.0-32.0)
[2017-05-28] MEDS: LORATADINE 10 MG TAB PO SCH (09:14)
[2017-05-28] MEDS: DOCUSATE SODIUM 50 MG/SENNA 8.6 MG TAB PO SCH ×2 (09:14→22:31)
[2017-05-28] MEDS: MULTIVITAMINS/MINERALS THERAPEUTIC TAB PO SCH ×2 (09:14→22:31)
[2017-05-28] MEDS: SODIUM CHLORIDE 0.9% FLUSH 10 ML FLUSH IV FLUSH SCH ×2 (09:15→22:32)
--- NOTE | 2017-05-28 11:51 | PD.ORT.PN ---
Subjective Subjective Remarks pain controlled. postop symptomatic anemia. s/p 1u PRBC yesterday. HB 8.1 Objective Vitals Vital Signs Date Time Temp Pulse Resp B/P (MAP) Pulse Ox O2 Delivery O2 Flow Rate FiO2 05/28/17 08:00 98.1 86 18 121/54 (76) 97 05/28/17 05:18 18 05/28/17 04:30 97.6 87 18 153/64 (93) 97 05/28/17 02:15 Room Air 05/27/17 23:08 100.5 104 17 125/58 (80) 98 05/27/17 19:24 97.4 86 18 125/61 (82) 94 05/27/17 16:30 99.9 95 18 131/55 97 05/27/17 16:00 99.9 95 18 131/55 (80) 97 05/27/17 13:59 100.6 97 16 130/50 96 05/27/17 13:44 99.7 97 17 133/60 97 05/27/17 12:00 96.8 81 18 102/45 (64) 95 I/O 05/27/17 05/27/17 05/27/17 05/28/17 05/28/17 05/28/17 07:00 15:00 23:00 07:00 15:00 23:00 Intake Total 1226 ml 1200 ml 786 ml 480 ml Output Total 400 ml 1100 ml Balance 826 ml 100 ml 786 ml 480 ml Intake Oral 280 ml 1200 ml 480 ml 480 ml IV Total 946 ml Packed Cells 306 ml Output Urine Total 400 ml 1100 ml # Voids 4 1 # Bowel Movements 0 0 0 0 Result Diagram: 05/28/1772405/28/17 07 Objective Remarks Alert awake and oriented -3. No acute distress. Pulmonary: Normal respiratory effort. Left lower extremity: Neurovascularly intact, +EHL/FHL, dressing clean, dry and intact. + PT/DP pulses. Supple compartments. Negative Homans sign. Right lower extremity: neurovascularly intact Assessment & Plan Assessment and Plan POD #3- left total hip replacement Feeling better. pain controlled. postop symptomatic anemia. s/p 1u PRBC yesterday. HB 8.1 DVT prophylaxis, Lovenox. xeralto (at dc, rx on chart) Weightbearing status: WBAT Dressing change:none Dispo: home with HHC when she is feeling better, likely thursday or thursday Russ Ann Jr., MD May 28, 2017 11:51
--- NOTE | 2017-05-28 13:06 | HHI.PR ---
Subjective Remarks Pt received 1 unit of PRBCs last night but she had a slight low grade temp so second unit was not transfused Pt was up to the chair this morning, no dizziness or lightheadedness Some slight nausea this morning No BM yet Objective Vitals Vital Signs Date Time Temp Pulse Resp B/P (MAP) Pulse Ox O2 Delivery O2 Flow Rate FiO2 05/28/17 12:00 97.1 82 18 116/61 (79) 97 05/28/17 08:00 98.1 86 18 121/54 (76) 97 05/28/17 05:18 18 05/28/17 04:30 97.6 87 18 153/64 (93) 97 05/28/17 02:15 Room Air 05/27/17 23:08 100.5 104 17 125/58 (80) 98 05/27/17 19:24 97.4 86 18 125/61 (82) 94 05/27/17 16:30 99.9 95 18 131/55 97 05/27/17 16:00 99.9 95 18 131/55 (80) 97 05/27/17 13:59 100.6 97 16 130/50 96 05/27/17 13:44 99.7 97 17 133/60 97 Result Diagram: 05/28/17 0725 05/28/17 0725 Other Results Laboratory Tests Test 05/27/17 08:55 05/28/17 07:25 White Blood Count 9.1 TH/MM3 10.3 TH/MM3 Red Blood Count 2.34 MIL/MM3 2.60 MIL/MM3 Hemoglobin 7.3 GM/DL 8.1 GM/DL Hematocrit 22.0 % 24.2 % Mean Corpuscular Volume 94.2 FL 92.8 FL Mean Corpuscular Hemoglobin 31.3 PG 31.1 PG Mean Corpuscular Hemoglobin Concent 33.2 % 33.6 % Red Cell Distribution Width 14.6 % 15.5 % Platelet Count 161 TH/MM3 178 TH/MM3 Mean Platelet Volume 9.4 FL 9.1 FL Neutrophils (%) (Auto) 77.0 % 72.1 % Lymphocytes (%) (Auto) 11.1 % 13.9 % Monocytes (%) (Auto) 10.5 % 11.4 % Eosinophils (%) (Auto) 1.0 % 2.3 % Basophils (%) (Auto) 0.4 % 0.3 % Neutrophils # (Auto) 7.0 TH/MM3 7.4 TH/MM3 Lymphocytes # (Auto) 1.0 TH/MM3 1.4 TH/MM3 Monocytes # (Auto) 1.0 TH/MM3 1.2 TH/MM3 Eosinophils # (Auto) 0.1 TH/MM3 0.2 TH/MM3 Basophils # (Auto) 0.0 TH/MM3 0.0 TH/MM3 CBC Comment DIFF FINAL DIFF FINAL Differential Comment Blood Urea Nitrogen 12 MG/DL 9 MG/DL Creatinine 0.75 MG/DL 0.50 MG/DL Random Glucose 124 MG/DL 93 MG/DL Calcium Level 7.8 MG/DL 7.8 MG/DL Sodium Level 140 MEQ/L 140 MEQ/L Potassium Level 3.8 MEQ/L 4.0 MEQ/L Chloride Level 110 MEQ/L 107 MEQ/L Carbon Dioxide Level 22.8 MEQ/L 26.6 MEQ/L Anion Gap 7 MEQ/L 6 MEQ/L Estimat Glomerular Filtration Rate 76 ML/MIN 121 ML/MIN Magnesium Level 2.0 MG/DL Imaging Last Impressions Hip and Pelvis X-Ray 05/25/17 0000 Signed Impressions: Service Date/Time: Thursday, May 25, 2017 17:21 - CONCLUSION: Uncomplicated left hip arthroplasty. Kody Baires MD Objective Remarks General: NAD, AAOx3 Chest: CTA Cardiac: Regular Abd: +BS, soft ND/NT Ext: No edema, bandages to left hip are c/d/i A/P Problem List: (1) Arthritis of left hip ICD Codes: M16.12 - Unilateral primary osteoarthritis, left hip Plan: Pt is a 72 y/o female with hypertension, GERD, osteoarthritis and osteoporosis. Left hip posttraumatic arthritis - Pt s/p post left total hip arthroplasty through anterior approach by Dr. Ann 05/25/2017 - Postoperative pain management with Percocet by mouth and morphine IV - Constipation precautions - PT daily - Pt currently plans to return home with HHC/PT upon discharge - Encourage use of IS Anemia, post-op - Pt with continued decrease in her H/H to 7.3/22.0 on 05/27 - No active bleeding - With the drop in her H/H and her hypotension transfusion was ordered - Pt received 1 out of the 2 units PRBCs that was ordered as she had a low grade temp after the first unit so the second unit was held until today. - She has not had any fevers this morning and will receive the second unit today. - Repeat labs in AM Hypertension - Pt has been more hypotensive, likely related to pain medications and anesthesia. - Lisinopril stopped - Cont. IVF - Cont. to monitor closely GERD - Continue home Protonix DVT prophylaxis with Lovenox 30 mg every 12 hours subcutaneous (2) HTN (hypertension) ICD Codes: I10 - Essential (primary) hypertension Status: Chronic (3) GERD (gastroesophageal reflux disease) ICD Codes: K21.9 - Gastro-esophageal reflux disease without esophagitis Status: Chronic Sofia To May 28, 2017 13:06
[2017-05-29] MEDS: oxyCODONE/ACETAMINOPHEN 5 MG/325 MG TAB PO PRN ×3 (02:50→11:40)
[2017-05-29 03:50] VITALS: BP 111/57; PULSE 87; RESP 18; TEMP 97.9; O2SAT 96
[2017-05-29 04:15] VITALS: BP 111/67; PULSE 87; RESP 18; TEMP 97.9; O2SAT 96
[2017-05-29] MEDS: ENOXAPARIN SODIUM 30 MG/0.3 ML SYRINGE SQ SCH (05:56)
[2017-05-29 06:32] LABS: AUTOMATED NEUTROPHIL # 5.3 TH/MM3 (1.8-7.7); BASOPHIL % 0.5 % (0.0-2.0); EOSINOPHIL # 0.5 TH/MM3 (0-0.4); EOSINOPHIL % 5.9 % (0.0-4.0); HEMATOCRIT 25.8 % (35.0-46.0); HEMO FLAGS DIFF FINAL; LYMPH % 19.8 % (9.0-44.0); LYMPHOCYTE # 1.7 TH/MM3 (1.0-4.8); MEAN CELL VOLUME 92.9 FL (80.0-100.0); MEAN CORPUSCULAR HEMOGLOBIN 31.7 PG (27.0-34.0); MEAN CORPUSCULAR HGB CONC 34.1 % (32.0-36.0); MONO % 12.2 % (0.0-8.0); NEUT % 61.6 % (16.0-70.0); PLATELET COUNT 205 TH/MM3 (150-450); RED BLOOD COUNT 2.77 MIL/MM3 (4.00-5.30); RED CELL DISTRIBUTION WIDTH 15.2 % (11.6-17.2); WHITE BLOOD COUNT 8.6 TH/MM3 (4.0-11.0)
[2017-05-29 07:46] VITALS: BP 114/68; PULSE 84; RESP 17; TEMP 98; O2SAT 97
[2017-05-29] MEDS: MULTIVITAMINS/MINERALS THERAPEUTIC TAB PO SCH (08:39)
[2017-05-29] MEDS: DOCUSATE SODIUM 50 MG/SENNA 8.6 MG TAB PO SCH (08:39)
[2017-05-29] MEDS: LORATADINE 10 MG TAB PO SCH (08:39)
[2017-05-29] MEDS: SODIUM CHLORIDE 0.9% FLUSH 10 ML FLUSH IV FLUSH SCH (09:00)
[2017-05-29] MEDS ORDERED: LISI-515 PO (10:50)
--- NOTE | 2017-05-29 11:03 | HHI.PR ---
Subjective Remarks Pt feeling well today She is wanting to walk a bit more today so she will feel more confident with going home today Pt has been discharged to home with [facility] No further dizziness or nausea Tolerating oral intake Objective Vitals Vital Signs Date Time Temp Pulse Resp B/P (MAP) Pulse Ox O2 Delivery O2 Flow Rate FiO2 05/29/17 07:46 98.0 84 17 114/68 (83) 97 05/29/17 04:15 97.9 87 18 111/67 (82) 96 05/29/17 03:50 97.9 87 18 111/57 96 05/29/17 03:50 17 05/29/17 00:19 Room Air 05/28/17 23:44 98.7 81 18 126/56 96 05/28/17 23:29 99.1 86 17 129/58 97 05/28/17 23:08 18 05/28/17 23:00 98.1 89 17 128/53 (78) 97 05/28/17 19:02 97.0 94 18 129/61 (83) 98 05/28/17 16:00 98.2 81 17 119/56 (77) 98 05/28/17 12:00 97.1 82 18 116/61 (79) 97 Result Diagram: 05/29/17 0600 05/28/17 0725 Other Results Laboratory Tests Test 05/28/17 07:25 05/29/17 06:00 White Blood Count 10.3 TH/MM3 8.6 TH/MM3 Red Blood Count 2.60 MIL/MM3 2.77 MIL/MM3 Hemoglobin 8.1 GM/DL 8.8 GM/DL Hematocrit 24.2 % 25.8 % Mean Corpuscular Volume 92.8 FL 92.9 FL Mean Corpuscular Hemoglobin 31.1 PG 31.7 PG Mean Corpuscular Hemoglobin Concent 33.6 % 34.1 % Red Cell Distribution Width 15.5 % 15.2 % Platelet Count 178 TH/MM3 205 TH/MM3 Mean Platelet Volume 9.1 FL 8.5 FL Neutrophils (%) (Auto) 72.1 % 61.6 % Lymphocytes (%) (Auto) 13.9 % 19.8 % Monocytes (%) (Auto) 11.4 % 12.2 % Eosinophils (%) (Auto) 2.3 % 5.9 % Basophils (%) (Auto) 0.3 % 0.5 % Neutrophils # (Auto) 7.4 TH/MM3 5.3 TH/MM3 Lymphocytes # (Auto) 1.4 TH/MM3 1.7 TH/MM3 Monocytes # (Auto) 1.2 TH/MM3 1.0 TH/MM3 Eosinophils # (Auto) 0.2 TH/MM3 0.5 TH/MM3 Basophils # (Auto) 0.0 TH/MM3 0.0 TH/MM3 CBC Comment DIFF FINAL DIFF FINAL Differential Comment Blood Urea Nitrogen 9 MG/DL Creatinine 0.50 MG/DL Random Glucose 93 MG/DL Calcium Level 7.8 MG/DL Magnesium Level 2.0 MG/DL Sodium Level 140 MEQ/L Potassium Level 4.0 MEQ/L Chloride Level 107 MEQ/L Carbon Dioxide Level 26.6 MEQ/L Anion Gap 6 MEQ/L Estimat Glomerular Filtration Rate 121 ML/MIN Imaging Last Impressions Hip and Pelvis X-Ray 05/25/17 0000 Signed Impressions: Service Date/Time: Thursday, May 25, 2017 17:21 - CONCLUSION: Uncomplicated left hip arthroplasty. Kody Baires MD Objective Remarks General: NAD, AAOx3 Chest: CTA Cardiac: Regular Abd: +BS, soft ND/NT Ext: No edema, bandages to left hip are c/d/i A/P Problem List: (1) Arthritis of left hip ICD Codes: M16.12 - Unilateral primary osteoarthritis, left hip Plan: Pt is a 72 y/o female with hypertension, GERD, osteoarthritis and osteoporosis. Left hip posttraumatic arthritis - Pt s/p post left total hip arthroplasty through anterior approach by Dr. Ann 05/25/2017 - Ortho has written for po pain meds and Xarelto - Constipation precautions - PT daily - Pt planned for discharge to home with HHC/PT today - Encourage use of IS Anemia, post-op - Pt with continued decrease in her H/H to 7.3/22.0 on 05/27 - No active bleeding - With the drop in her H/H and her hypotension transfusion was ordered - Pt received 1 out of the 2 units PRBCs that was ordered as she had a low grade temp after the first unit so the second unit was held and given on 05/28/17. - Repeat labs this morning with Hgb 8.8 Hypertension - Pt has been more hypotensive, likely related to pain medications and anesthesia. - Lisinopril can be resumed at discharge with parameters to hold for systolic less than 110 - Cont. to monitor closely by HHC and pt upon discharge GERD - Continue home Protonix (2) HTN (hypertension) ICD Codes: I10 - Essential (primary) hypertension Status: Chronic (3) GERD (gastroesophageal reflux disease) ICD Codes: K21.9 - Gastro-esophageal reflux disease without esophagitis Status: Chronic Assessment and Plan Patient examined. Assessment and plan formulated with Sofia To PA-C. I agree with the above. Sofia To May 29, 2017 11:03 Zackary Alanis MD May 29, 2017 11:06
--- NOTE | 2017-05-29 11:04 | HHI.FF ---
Face to Face Verification Diagnosis: (1) Closed left hip fracture (2) GERD (gastroesophageal reflux disease) (3) HTN (hypertension) (4) Arthritis of left hip Home Health Nursing Order: Nursing assessment with vital signs Instructions: Please monitor BP daily. Hold Lisinopril if systolic BP less than 110 I have seen patient Liane Pagan on 05/29/17. My clinical findings support the need for the requested home health care services because: Deconditioned w/ increased weakness I certify that my clinical findings support that this patient is homebound because: Unsteady gait/balance Sofia To May 29, 2017 11:04
--- NOTE | 2017-05-29 13:07 | PD.ORT.PN ---
Subjective Subjective Remarks doing well. no issues. walking more with PT Objective Vitals Vital Signs Date Time Temp Pulse Resp B/P (MAP) Pulse Ox O2 Delivery O2 Flow Rate FiO2 05/29/17 07:46 98.0 84 17 114/68 (83) 97 05/29/17 04:15 97.9 87 18 111/67 (82) 96 05/29/17 03:50 97.9 87 18 111/57 96 05/29/17 03:50 17 05/29/17 00:19 Room Air 05/28/17 23:44 98.7 81 18 126/56 96 05/28/17 23:29 99.1 86 17 129/58 97 05/28/17 23:08 18 05/28/17 23:00 98.1 89 17 128/53 (78) 97 05/28/17 19:02 97.0 94 18 129/61 (83) 98 05/28/17 16:00 98.2 81 17 119/56 (77) 98 I/O 05/28/17 05/28/17 05/28/17 05/29/17 05/29/17 05/29/17 07:00 15:00 23:00 07:00 15:00 23:00 Intake Total 480 ml 720 ml 480 ml 780 ml Balance 480 ml 720 ml 480 ml 780 ml Intake Oral 480 ml 720 ml 480 ml 360 ml Packed Cells 400 ml Blood Product IV Normal Saline Flush 20 ml # Voids 1 3 4 2 # Bowel Movements 0 0 0 0 Result Diagram: 05/29/17 0600 05/28/17 0725 Objective Remarks Alert awake and oriented -3. No acute distress. Pulmonary: Normal respiratory effort. Left lower extremity: Neurovascularly intact, +EHL/FHL, dressing clean, dry and intact. + PT/DP pulses. Supple compartments. Negative Homans sign. Right lower extremity: neurovascularly intact Assessment & Plan Assessment and Plan POD #4- left total hip replacement Feeling much better DVT prophylaxis, Lovenox. xeralto (at dc, rx on chart) Weightbearing status: WBAT Dressing change:none Dispo: home with [facility] today. ok to dc Russ Ann Jr., MD May 29, 2017 13:07
--- NOTE | 2017-05-29 13:12 | HHI.DS ---
Discharge Summary Admission Date May 25, 2017 at 06:15 Discharge Date: May 29, 2017 Admitting Diagnosis Left hip post-traumatic arthritis Diagnosis: (1) Arthritis of left hip Diagnosis: Principal ICD Codes: M16.12 - Unilateral primary osteoarthritis, left hip Procedures LEFT SMITHA Brief History This is a 72 year old female patient CBC/BMP: 05/29/17 0600 05/28/17 0725 Significant Findings Laboratory Tests Test 05/27/17 08:55 05/28/17 07:25 05/29/17 06:00 Red Blood Count 2.34 MIL/MM3 (4.00-5.30) 2.60 MIL/MM3 (4.00-5.30) 2.77 MIL/MM3 (4.00-5.30) Hemoglobin 7.3 GM/DL (11.6-15.3) 8.1 GM/DL (11.6-15.3) 8.8 GM/DL (11.6-15.3) Hematocrit 22.0 % (35.0-46.0) 24.2 % (35.0-46.0) 25.8 % (35.0-46.0) Neutrophils (%) (Auto) 77.0 % (16.0-70.0) 72.1 % (16.0-70.0) Monocytes (%) (Auto) 10.5 % (0.0-8.0) 11.4 % (0.0-8.0) 12.2 % (0.0-8.0) Monocytes # (Auto) 1.0 TH/MM3 (0-0.9) 1.2 TH/MM3 (0-0.9) 1.0 TH/MM3 (0-0.9) Random Glucose 124 MG/DL (74-106) Calcium Level 7.8 MG/DL (8.5-10.1) 7.8 MG/DL (8.5-10.1) Chloride Level 110 MEQ/L (98-107) Estimat Glomerular Filtration Rate 76 ML/MIN (>89) Eosinophils (%) (Auto) 5.9 % (0.0-4.0) Eosinophils # (Auto) 0.5 TH/MM3 (0-0.4) PE at Discharge Alert awake and oriented -3. No acute distress. Pulmonary: Normal respiratory effort. Left lower extremity: Neurovascularly intact, +EHL/FHL, dressing clean, dry and intact. + PT/DP pulses. Supple compartments. Negative Homans sign. Right lower extremity: neurovascularly intact Hospital Course The patient was taken to the operating room by the undersigned for the above procedures which she tolerated well. She extubated then transferred to PACU in stable condition. The patient was subsequently transferred to the floor. The rest of his hospital stay was uneventful. After second procedure, she received adequate postoperative antibiotics. His diet was advanced as tolerated and he had full return of bowel function as well as making adequate urine output. We were able to covert IV pain meds to po pain meds. The patient received adequate physical therapy during her stay and is being discharged with detailed physical therapy recommendations. The patient was seen and examined on the day of discharge and found to be in stable condition. On Exam at discharge: Operative extremity was neurovascularly intact with dressing clean, dry and intact. Follow-up 10-[address] Ann @ orthopaedic clinic with a Awilda Faye. Pt Condition on Discharge: Good Discharge Disposition: Discharge Home Discharge Instructions Diet Instructions: As Tolerated, No Restrictions Activities You Can Perform: Regular-No Restrictions, Weight Bearing as Donn Activities to Avoid: Contact Sports, Lifting/Bending, Prolonged Standing, Strenuous Activity Russ Ann Jr., MD May 29, 2017 13:12
== END 2017-05-29 14:27 | disposition home health service (06) | DRG 470 ==
LOC: HSDI 06:15 → N06B 18:22
PROVIDERS: ADMIT Orthopaedic Surgery; ATTEND Orthopaedic Surgery
PROC: 0SRB04A Replacement of Left Hip Joint with Ceramic on Polyethylene Synthetic Substitute, Uncemented, Open Approach (ICD-10-PCS; principal; 2017-05-25 12:04)
PROC: 30233N1 Transfusion of Nonautologous Red Blood Cells into Peripheral Vein, Percutaneous Approach (ICD-10-PCS; 2017-05-27)
DX: M16.52 Unilateral post-traumatic osteoarthritis, left hip (principal); R50.9 Fever, unspecified; I10 Essential (primary) hypertension; D62 Acute posthemorrhagic anemia; K21.9 Gastro-esophageal reflux disease without esophagitis; I95.81 Postprocedural hypotension; M81.0 Age-related osteoporosis without current pathological fracture; R53.1 Weakness; Z87.891 Personal history of nicotine dependence; Z88.8 Allergy status to other drugs, medicaments and biological substances
CPT/HCPCS: 36430; 73502; 76000; 80048; 83735; 85014; 85018; 85025; 85027; 86850; 86900; 86901; 86920; 94150; C1776; C9290; J0690; J1100; J1580; J1650; J1885; J2250; J2270; J2370; J2405; J3010; J3370; J7040; J7050; J7120; P9016